=== PATIENT | female | born 2000 | race Caucasian/White ===

== ENCOUNTER 2021-07-24 14:11 | Outpatient (CLI) | payer BC | END 2021-07-24 14:12 | disposition home or self-care (01) | LOC: SCSRAD 14:11 | PROVIDERS: ATTEND Family Medicine | DX: S99.921A Unspecified injury of right foot, initial encounter (principal); M79.671 Pain in right foot ==

== ENCOUNTER 2021-09-09 11:50 | Outpatient (CLI) | payer BC | END 2021-09-09 11:51 | disposition home or self-care (01) | LOC: SCSRAD 11:50 | PROVIDERS: ATTEND Family Medicine | DX: S92.251A Displaced fracture of navicular [scaphoid] of right foot, initial encounter for closed fracture (principal) ==